=== PATIENT | female | born 1985 | race Two or more races ===

== ENCOUNTER → 2017-12-25 | Outpatient (CLI) | payer OTHER ==
[~2017-12-25] MED LIST: CERT400S IM; NAPR-856 PO
== END ==
LOC: CFH 07:34
PROVIDERS: ATTEND Surgery
DX: Z01.818 Encounter for other preprocedural examination (principal); E66.01 Morbid (severe) obesity due to excess calories
CPT/HCPCS: 74241

== ENCOUNTER → 2018-01-29 | Outpatient (CLI) | payer OTHER | END | disposition home or self-care (01) | LOC: CFH 07:01 | PROVIDERS: ATTEND Specialist | DX: D75.89 Other specified diseases of blood and blood-forming organs (principal); M05.79 Rheumatoid arthritis with rheumatoid factor of multiple sites without organ or systems involvement; M25.471 Effusion, right ankle ==

== ENCOUNTER 2018-03-21 13:28 | Emergency (ER) | payer OTHER ==
[~2018-03-21] VITALS: Ht 160 cm; Wt 82.0 kg
[2018-03-21] MEDS ORDERED: KETOROLAC 30 MG/1 ML ONE (14:28)
[2018-03-21] MEDS ORDERED: KETOROLAC 30 MG/1 ML IM ONE (14:30)
[2018-03-21 16:05] VITALS: BP 124/82
== END 2018-03-21 16:07 | disposition home or self-care (01) ==
LOC: ED 15:55
DX: M25.572 Pain in left ankle and joints of left foot (principal); M25.571 Pain in right ankle and joints of right foot; M06.9 Rheumatoid arthritis, unspecified
CPT/HCPCS: 73610; 96372; 99284; J1885

== ENCOUNTER → 2018-06-15 | Outpatient (CLI) | payer OTHER ==
[~2018-06-15] MED LIST changes: +TOFA11TA PO
== END | disposition home or self-care (01) ==
LOC: STAR 10:34
PROVIDERS: ATTEND Orthopaedic Surgery
DX: Z02.9 Encounter for administrative examinations, unspecified (principal)

== ENCOUNTER 2018-06-22 09:10 | Day surgery (SDC) | payer OTHER ==
[~2018-06-22] VITALS: Ht 160 cm; Wt 74.0 kg
[2018-06-22 09:27] VITALS: BP 116/82
[2018-06-22] MEDS ORDERED: LACTATED RINGERS 1,000 ML IV SCH (09:32)
[2018-06-22 09:42] LABS: HCG UR SG 1.024 (1.003-1.030)
[2018-06-22] MEDS ORDERED: MIDAZOLAM 1 MG/ML, 2ML ONE (10:09)
[2018-06-22] MEDS ORDERED: FENTANYL PF 250 MCG/5ML ONE (10:09)
[2018-06-22] MEDS ORDERED: BUPIVACAINE/PF 0.5% ONE (10:48)
[2018-06-22] MEDS ORDERED: LIDOCAINE/PF 1%, 30ML ONE (10:48)
[2018-06-22] MEDS ORDERED: MORPHINE SULFATE 4 MG/ML, 1ML IVPush PRN (11:00)
[2018-06-22] MEDS ORDERED: PROMETHAZINE 25 MG/ML, 1ML IM PRN ×2 (11:00)
[2018-06-22] MEDS ORDERED: OXYcodone 5 MG/5 ML ORAL.SOL UDC PO PRN (11:00)
[2018-06-22] MEDS ORDERED: LABETALOL 5MG/ML, 20ML IV PRN (11:00)
[2018-06-22] MEDS ORDERED: ACETAMINOPHEN 325 MG TABLET PO PRN (11:00)
[2018-06-22] MEDS ORDERED: HYDROmorphone 2 MG/ML, 1ML IVPush PRN (11:00)
[2018-06-22] MEDS ORDERED: MEPERIDINE/PF 25MG/0.5ML IVPush PRN (11:00)
[2018-06-22] MEDS ORDERED: PROMETHAZINE 12.5 MG SUPP PR PRN (11:00)
[2018-06-22] MEDS ORDERED: ONDANSETRON 2MG/ML, 2ML IV PRN (11:00)
[2018-06-22] MEDS ORDERED: FENTANYL PF 100 MCG/2ML IV PRN (11:00)
[2018-06-22] MEDS ORDERED: hydrALAzine 20 MG/ML, 1ML IV PRN (11:00)
[2018-06-22] MEDS ORDERED: ONDANSETRON ODT 8 MG PO PRN (11:00)
[2018-06-22] MEDS ORDERED: PROMETHAZINE 25 MG SUPP PR PRN (11:00)
[2018-06-22] MEDS ORDERED: HALOPERIDOL 5 MG/ML IV PRN (11:00)
[2018-06-22] MEDS ORDERED: PROMETHAZINE 25 MG/ML, 1ML IV PRN (11:00)
[2018-06-22] MEDS ORDERED: ONDANSETRON 2MG/ML, 2ML ONE (11:49)
[2018-06-22] MEDS ORDERED: CEFAZOLIN 1,000 MG ONE ×2 (11:49)
[2018-06-22] MEDS ORDERED: DEXAMETHASONE 4 MG/ML, 1ML ONE ×2 (11:49)
[2018-06-22] MEDS ORDERED: SODIUM CHLORIDE 0.9% PF 10ML ONE (11:49)
[2018-06-22] MEDS ORDERED: PROPOFOL 10 MG/ML, 20ML ONE (11:49)
[2018-06-22] MEDS ORDERED: ACETAMINOPHEN 650 MG/20.3 ML UDC ONE (12:43)
[2018-06-22] MEDS ORDERED: OXYcodone 5 MG/5 ML ORAL.SOL UDC ONE (12:44)
[2018-06-22] MEDS ORDERED: HYDROmorphone 2 MG/ML, 1ML ONE (14:03)
== END 2018-06-22 13:51 | disposition home or self-care (01) ==
LOC: OUT 09:10
PROVIDERS: ATTEND Orthopaedic Surgery
DX: M06.871 Other specified rheumatoid arthritis, right ankle and foot (principal); M65.871 Other synovitis and tenosynovitis, right ankle and foot; M21.6X1 Other acquired deformities of right foot
CPT/HCPCS: 27625; 29891; 29898; 81025; J0690; J1100; J2250; J2405; J2704; J3010; J7120; J3490

== ENCOUNTER 2019-07-23 12:36 | Outpatient (CLI) | payer OTHER ==
[2019-07-23] MEDS ORDERED: OMNIPAQUE 350 MG/ML, 100ML BOTTLE ONE (14:26)
== END 2019-07-23 23:59 | disposition home or self-care (01) ==
LOC: RAD 12:36
PROVIDERS: ATTEND Family Medicine
DX: R10.31 Right lower quadrant pain (principal)
CPT/HCPCS: 74177; Q9967

== ENCOUNTER → 2019-08-07 | Outpatient (CLI) | payer OTHER | END | disposition home or self-care (01) | LOC: CFH 07:43 | PROVIDERS: ATTEND Internal Medicine Cardiovascular Disease | DX: I34.0 Nonrheumatic mitral (valve) insufficiency (principal) | CPT/HCPCS: 93306 ==

== ENCOUNTER 2019-08-21 09:49 | Emergency (ER) | payer OTHER ==
[~2019-08-21] VITALS: Ht 160 cm; Wt 64.2 kg
--- NOTE | 2019-08-21 10:09 | NUR ---
PT A&OX4, RESP EVEN & UNLABORED, SPEECH CLEAR, + NAUSEA. C/O GREEN. DENIES ABD PAIN, VAG BLEED, UTI SX. REPORTS NAUSEA STARTED A COUPLE OF WEEKS AGO, VOMITING STARTED A COUPLE OF DAYS AGO, UNABLE TO KEEP ANYTHING DOWN TODAY. CONTACTED OB WHO ADVISED ED EVAL. LMP: 07/04/2019. AB0. SPOUSE IN ROOM. Addendum: 08/21/19 at 1025 by SHAWNA CORRECTION: AB1
[2019-08-21] MEDS ORDERED: PRENATAL VITAMIN (10:16)
--- NOTE | 2019-08-21 10:20 | NUR ---
PT AMBULATORY TO & FROM [facility] W/OUT INCIDENT, GAIT STEADY. VOIDED SPECIMEN PROVIDED.
--- NOTE | 2019-08-21 10:24 | NUR ---
DR SALTER BS FOR EXAM.
[2019-08-21] MEDS ORDERED: SODIUM CHLORIDE 0.9% 1,000ML IVBOLUS ONE (10:30)
[2019-08-21] MEDS ORDERED: SODIUM CHLORIDE FLUSH 10ML SYR IVF ONE (10:30)
[2019-08-21] MEDS ORDERED: ONDANSETRON 2MG/ML, 2ML IVPush ONE (10:30)
[2019-08-21 11:11] LABS: MICROSCOPIC NOT IND
[2019-08-21 11:22] LABS: CULTURE INDICATED? NO
[2019-08-21 11:28] LABS: BASOPHILS # (AUTO) 0.05 x10^3/uL (0-0.1); BASOPHILS % (AUTO) 1 % (0-1); EOSINOPHILS # (AUTO) 0.09 x10^3/uL (0-0.4); EOSINOPHILS % (AUTO) 2 % (1-7); LYMPHOCYTES # (AUTO) 1.88 x10^3/uL (1-3.4); LYMPHOCYTES % (AUTO) 34 % (22-44); MD NO; MEAN CORPUSCULAR HEMOGLOBIN 30.2 pg (27.0-34.8); MEAN CORPUSCULAR HGB CONC 33.7 g/dL (32.4-35.8); MEAN CORPUSCULAR VOLUME 89.6 fL (80-100); MEAN PLATELET VOLUME 8.1 fL (7.4-10.4); MONOCYTES # (AUTO) 0.42 x10^3/uL (0.2-0.8); MONOCYTES % (AUTO) 8 % (2-9); NEUTROPHILS # (AUTO) 3.15 x10^3/uL (1.8-6.8); NEUTROPHILS % (AUTO) 56 % (42-75); PLATELET COUNT 256 x10^3/uL (130-400); RED BLOOD COUNT 4.41 x10^6/uL (3.82-5.3); RED CELL DISTRIBUTION WIDTH 14.1 % (9.6-15.2)
[2019-08-21 11:43] LABS: ALBUMIN 3.6 g/dL (3.4-5.0); ANION GAP 8 mmol/L (5-15); CALCIUM 8.5 mg/dL (8.5-10.1); CHLORIDE 107 mmol/L (98-107); CREATININE 0.62 mg/dL (0.55-1.02)
--- NOTE | 2019-08-21 11:46 | NUR ---
PT REPORT TO MAHSA HIGUERA. PT CARE TRANSFERRED.
[2019-08-21 11:49] VITALS: BP 117/70
[2019-08-21] MEDS ORDERED: ONDANSETRON 2MG/ML, 2ML ONE (11:53)
--- NOTE | 2019-08-21 11:57 | NUR ---
PT MEDICATED PER MAR, IV BOLUS COMPLETED. AT BEDSIDE, VSS
== END 2019-08-21 12:58 | disposition home or self-care (01) ==
LOC: ED 11:12
DX: O21.0 Mild hyperemesis gravidarum (principal); Z3A.01 Less than 8 weeks gestation of pregnancy; Z90.49 Acquired absence of other specified parts of digestive tract
CPT/HCPCS: 36415; 80048; 81003; 82040; 85025; 96360; 99283; J2405; J7030

== ENCOUNTER → 2019-09-04 | Outpatient (CLI) | payer OTHER ==
[~2019-09-04] MED LIST changes: +PRENATAL VITAMIN
== END | disposition home or self-care (01) ==
LOC: RAD 08:53
PROVIDERS: ATTEND Orthopaedic Surgery
DX: M25.572 Pain in left ankle and joints of left foot (principal)

== ENCOUNTER 2020-01-03 13:57 | Observation (INO) | payer MEDICAID, OTHER ==
[~2020-01-03] VITALS: Ht 160 cm; Wt 72.7 kg
[2020-01-03 13:40] VITALS: BP 93/53
[2020-01-03 14:28] LABS: MICROSCOPIC INDICATED
[2020-01-03] MEDS ORDERED: ONDANSETRON 2MG/ML, 2ML IVPush ONE (15:30)
[2020-01-03] MEDS ORDERED: LACTATED RINGERS 1,000 ML IVBOLUS ONE (15:30)
[2020-01-03] MEDS ORDERED: LACTATED RINGERS 1,000 ML IV SCH (15:30)
[2020-01-03] MEDS ORDERED: ONDANSETRON 2MG/ML, 2ML ONE (15:31)
== END 2020-01-03 18:23 | disposition home or self-care (01) ==
LOC: LDOP 13:57 → LDIP 15:37
PROVIDERS: ADMIT Obstetrics & Gynecology; ATTEND Obstetrics & Gynecology
DX: O21.2 Late vomiting of pregnancy (principal); O99.89 Other specified diseases and conditions complicating pregnancy, childbirth and the puerperium; M06.9 Rheumatoid arthritis, unspecified; Z3A.26 26 weeks gestation of pregnancy
CPT/HCPCS: 59025; 81001; 96360; 96361; 96374; 99201; G0378; J2405; J7120; G0463

== ENCOUNTER → 2020-03-26 | Outpatient (CLI) | payer MEDICAID | END | disposition home or self-care (01) | LOC: STAR 12:03 | PROVIDERS: ATTEND Anesthesiology | DX: Z01.812 Encounter for preprocedural laboratory examination (principal); Z20.828 Contact with and (suspected) exposure to other viral communicable diseases | CPT/HCPCS: 36415; 87635 ==

== ENCOUNTER 2020-03-28 11:08 | Emergency (ER) | payer MEDICAID ==
[~2020-03-28] VITALS: Ht 160 cm; Wt 82.3 kg
--- NOTE | 2020-03-28 12:44 | NUR ---
Pt brougth back from triage with chief complaint of groin abbcess for about 4 days.
--- NOTE | 2020-03-28 13:25 | NUR ---
PT CAME BY POV. PT C/O GROIN PAIN FOR 4 DAYS WITH PALPABLE BUMP UNDER THE SKIN TO THE RIGHT OF HER LABIA. PT INITIALLY PRESENTED TO UC AND WAS DIRECTED TO THE ED. PT RATED PAIN 7/10.
[2020-03-28] MEDS ORDERED: HYDROmorphone 2 MG/ML, 1ML IM PRN (13:30)
[2020-03-28] MEDS ORDERED: HYDROmorphone 1 MG/ML, 1ML INJ ONE (13:44)
[2020-03-28] MEDS ORDERED: LIDOCAINE 2%, 20ML SQ ONE (14:00)
[2020-03-28] MEDS ORDERED: LIDOCAINE-MPF 1%, 5ML ONE (14:02)
[2020-03-28] MEDS ORDERED: LIDOCAINE-MPF 2% ,5ML ONE (14:08)
--- NOTE | 2020-03-28 14:22 | NUR ---
AFTER MEDICATED NOTED ON SEP, PROVIDER AT BEDSIDE PREPARING FOR I&D
[2020-03-28 14:50] VITALS: BP 122/74
== END 2020-03-28 15:00 | disposition home or self-care (01) ==
LOC: ED 12:19
DX: O99.713 Diseases of the skin and subcutaneous tissue complicating pregnancy, third trimester (principal); L02.214 Cutaneous abscess of groin; Z3A.38 38 weeks gestation of pregnancy; Z90.49 Acquired absence of other specified parts of digestive tract
CPT/HCPCS: 96372; 99283; J1170

== ENCOUNTER 2020-03-28 14:50 | Outpatient (CLI) | payer MEDICAID ==
[~2020-03-28] VITALS: Ht 160 cm; Wt 82.7 kg
== END 2020-03-28 17:25 | disposition home or self-care (01) ==
LOC: LDOP 14:50
PROVIDERS: ATTEND Obstetrics & Gynecology
DX: Z34.03 Encounter for supervision of normal first pregnancy, third trimester (principal); Z3A.38 38 weeks gestation of pregnancy
CPT/HCPCS: 59025; 76819

== ENCOUNTER 2020-03-31 07:18 | Inpatient (IN) | payer MEDICAID ==
[~2020-03-31] VITALS: Ht 160 cm; Wt 82.0 kg
[2020-03-31] MEDS ORDERED: OXYTOCIN 30U/ 0.9% NaCL 500ML 500 ML IV ONE (21:58)
[2020-03-31] MEDS ORDERED: OXYTOCIN 30U/ 0.9% NaCL 500ML 500 ML IV PRN (21:58)
[2020-03-31] MEDS ORDERED: MISOPROSTOL 25 MCG TABLET VG PRN (22:00)
[2020-03-31] MEDS ORDERED: TERBUTALINE 1 MG/ML, 1ML SQ PRN (22:00)
[2020-03-31] MEDS ORDERED: ONDANSETRON 2MG/ML, 2ML IVPush PRN (22:00)
[2020-03-31] MEDS ORDERED: SODIUM CITRATE/CITRIC ACID 30 ML UDC PO PRN (22:00)
[2020-03-31] MEDS ORDERED: FENTANYL PF 100 MCG/2ML IV PRN (22:00)
[2020-03-31] MEDS ORDERED: ALUMINUM/MAG/SIMETHICONE 30 ML UDC PO PRN (22:00)
[2020-03-31] MEDS ORDERED: METOCLOPRAMIDE 5 MG/ML, 2ML IVPush PRN (22:00)
[2020-03-31] MEDS ORDERED: FENTANYL PF 100 MCG/2ML IVPush PRN (22:00)
[2020-03-31] MEDS ORDERED: TERBUTALINE 1 MG/ML, 1ML IVPush PRN (22:00)
[2020-03-31] MEDS ORDERED: NEWBORN KIT ONE (22:05)
[2020-03-31] MEDS ORDERED: MISOPROSTOL 25 MCG TABLET ONE (22:05)
[2020-03-31] MEDS ORDERED: OXYTOCIN 30U/ 0.9% NaCL 500ML 500 ML ONE (22:05)
[2020-03-31] MEDS: LACTATED RINGERS 1,000 ML IV SCH (22:31)
[2020-03-31 22:44] LABS: BASOPHILS # (AUTO) 0.05 x10^3/uL (0-0.1); BASOPHILS % (AUTO) 1 % (0-1); EOSINOPHILS # (AUTO) 0.13 x10^3/uL (0-0.4); EOSINOPHILS % (AUTO) 2 % (1-7); LYMPHOCYTES # (AUTO) 1.91 x10^3/uL (1-3.4); LYMPHOCYTES % (AUTO) 29 % (22-44); MD NO; MEAN CORPUSCULAR HEMOGLOBIN 29.9 pg (27.0-34.8); MEAN CORPUSCULAR HGB CONC 33.2 g/dL (32.4-35.8); MEAN CORPUSCULAR VOLUME 90.1 fL (80-100); MEAN PLATELET VOLUME 9.4 fL (7.4-10.4); MONOCYTES # (AUTO) 0.41 x10^3/uL (0.2-0.8); MONOCYTES % (AUTO) 6 % (2-9); NEUTROPHILS % (AUTO) 62 % (42-75); PLATELET COUNT 208 x10^3/uL (130-400)
[2020-04-01] MEDS ORDERED: FENTANYL/BUPIV./NS/PF 250 ML EPIDCONT SCH (09:20)
[2020-04-01] MEDS ORDERED: NALOXONE 0.4 MG/ML, 1ML IVPush PRN (09:30)
[2020-04-01] MEDS ORDERED: DIPHENHYDRAMINE 50 MG/ML, 1ML IVPush PRN (09:30)
[2020-04-01] MEDS ORDERED: EPHEDRINE 50 MG/ML, 1ML IVPush PRN (09:30)
[2020-04-01] MEDS ORDERED: ONDANSETRON 2MG/ML, 2ML IVPush PRN (09:30)
[2020-04-01] MEDS ORDERED: LACTATED RINGERS 1,000 ML IVBOLUS PRN (09:30)
[2020-04-01] MEDS ORDERED: BUPIVACAINE 0.25% ONE (09:34)
[2020-04-01] MEDS ORDERED: FENTANYL/BUPIV./NS/PF 250 ML EPIDCONT ONE (09:34)
[2020-04-01] MEDS: LACTATED RINGERS 1,000 ML IV SCH ×2 (09:45→12:11)
[2020-04-01 10:33] LABS: ALANINE AMINOTRANSFERASE 52 U/L (12-78); ALBUMIN 2.6 g/dL (3.4-5.0); ANION GAP 7 mmol/L (5-15); CALCIUM 8.7 mg/dL (8.5-10.1); CHLORIDE 109 mmol/L (98-107); CREATININE 0.64 mg/dL (0.55-1.02)
[2020-04-01 10:35] LABS: MICROSCOPIC NOT IND
[2020-04-01 10:35] LABS: ALKALINE PHOSPHATASE 188 U/L (45-117); BILIRUBIN,TOTAL 0.2 mg/dL (0.2-1.0); TOTAL PROTEIN 6.6 g/dL (6.4-8.2)
[2020-04-01 10:47] LABS: CREATININE,URINE RANDOM 38.3 mg/dL
[2020-04-01] MEDS: D5%-LACTATED RINGERS 1,000 ML IV SCH ×2 (13:14→23:24)
[2020-04-01 19:15] VITALS: BP 135/77
[2020-04-01] MEDS ORDERED: ONDANSETRON 2MG/ML, 2ML ONE (20:07)
[2020-04-01] MEDS ORDERED: ACETAMINOPHEN 500 MG TABLET ONE (21:54)
[2020-04-01] MEDS ORDERED: GENTAMICIN PER PHARMACY MC PRN (22:00)
[2020-04-01] MEDS ORDERED: AMPICILLIN 2 GM in SODIUM CHLORIDE 0.9% 100 ML IV SCH (22:00)
[2020-04-01] MEDS ORDERED: ACETAMINOPHEN 500 MG TABLET PO ONE (22:00)
[2020-04-01] MEDS ORDERED: PHARMACOKINETIC MONITORING MC PRN (22:30)
[2020-04-01] MEDS ORDERED: GENTAMICIN 140 MG in SODIUM CHLORIDE 0.9% 50 ML IV ONE (23:00)
[2020-04-01] MEDS ORDERED: METOCLOPRAMIDE 5 MG/ML, 2ML ONE (23:45)
[2020-04-01] MEDS ORDERED: LIDOCAINE/MPF 2%-EPI 1:200K, 20 ML ONE (23:58)
[2020-04-02] MEDS ORDERED: morphine SULFATE/PF 1 MG/ML, 10ML ONE (00:21)
[2020-04-02] MEDS ORDERED: KETOROLAC 30 MG/1 ML ONE (00:22)
[2020-04-02] MEDS ORDERED: OXYTOCIN 10 UNITS/ML, 1ML ONE (00:22)
[2020-04-02] MEDS ORDERED: CEFAZOLIN 1,000 MG ONE (00:22)
[2020-04-02] MEDS ORDERED: ONDANSETRON 2MG/ML, 2ML ONE (00:22)
[2020-04-02] MEDS ORDERED: WATER-INJECTION,STERILE 10 ML IV ONE (00:22)
[2020-04-02] MEDS ORDERED: DEXAMETHASONE 4 MG/ML, 1ML ONE (00:22)
[2020-04-02] MEDS ORDERED: EPHEDRINE 50 MG/ML, 1ML ONE (01:21)
[2020-04-02] MEDS: LACTATED RINGERS 1,000 ML IV SCH ×8 (01:27→21:32)
[2020-04-02] MEDS: OXYTOCIN 30U/ 0.9% NaCL 500ML 500 ML IV SCH ×3 (01:32→21:32)
[2020-04-02 01:59] LABS: MEAN CORPUSCULAR HEMOGLOBIN 29.6 pg (27.0-34.8); MEAN CORPUSCULAR HGB CONC 32.4 g/dL (32.4-35.8); MEAN CORPUSCULAR VOLUME 91.3 fL (80-100); MEAN PLATELET VOLUME 9.3 fL (7.4-10.4); PLATELET COUNT 159 x10^3/uL (130-400); RED BLOOD COUNT 3.44 x10^6/uL (3.82-5.3); RED CELL DISTRIBUTION WIDTH 16.9 % (9.6-15.2)
[2020-04-02] MEDS ORDERED: MISOPROSTOL 200 MCG TABLET PR PRN (02:00)
[2020-04-02] MEDS: IBUPROFEN 600 MG TABLET PO SCH ×3 (02:00→18:00)
[2020-04-02] MEDS ORDERED: BISACODYL 10 MG SUPP PR PRN (02:00)
[2020-04-02] MEDS ORDERED: CALCIUM CARBONATE 500 MG TAB.CHEW PO PRN (02:00)
[2020-04-02] MEDS ORDERED: ONDANSETRON 2MG/ML, 2ML IV PRN (02:00)
[2020-04-02] MEDS ORDERED: ACETAMINOPHEN 325 MG TABLET PO SCH (02:00)
[2020-04-02] MEDS ORDERED: morphine SULFATE 10 MG/ML, 1ML IVPush PRN (02:00)
[2020-04-02] MEDS ORDERED: MORPHINE SULFATE 4 MG/ML, 1ML IVPush PRN ×2 (02:00→05:30)
[2020-04-02] MEDS ORDERED: CLINDAMYCIN PMX 900MG/50ML 50 ML ONE (02:15)
[2020-04-02] MEDS: CLINDAMYCIN PMX 900MG/50ML 50 ML IV SCH ×3 (02:23→18:06)
[2020-04-02 03:00] VITALS: BP 114/80
[2020-04-02 03:06] LABS: MD YES
[2020-04-02 03:09] LABS: BAND#(MANUAL) 2.32 x10^3/uL; BANDS%(MANUAL) 16 % (0-7); LYMPH#(MANUAL) 0.73 x10^3/uL (1-3.4); LYMPHS% (MANUAL) 5 % (22-44); MONOS#(MANUAL) 0.29 x10^3/uL (0.3-2.7); MONOS% (MANUAL) 2 % (2-9); SEG#(MANUAL) 11.17 x10^3/uL (1.8-6.8); SEGS% (MANUAL) 77 % (42-75)
[2020-04-02 03:10] LABS: <PLATELET ESTIMATE> ADEQUATE; <PLT MORPHOLOGY> NORMAL PLT MORPH; ANISOCYTOSIS 1+
[2020-04-02] MEDS: AMPICILLIN 2 GM in SODIUM CHLORIDE 0.9% 100 ML IV SCH ×3 (04:00→16:53)
[2020-04-02] MEDS ORDERED: OXYcodone/APAP 5/325MG TABLET ONE (05:04)
[2020-04-02] MEDS ORDERED: OXYcodone/APAP 5/325MG TABLET PO PRN (05:30)
[2020-04-02] MEDS ORDERED: NALOXONE 0.4 MG/ML, 1ML IVPush PRN (05:30)
[2020-04-02] MEDS ORDERED: DO NOT GIVE XX SCH (05:30)
[2020-04-02] MEDS ORDERED: DIPHENHYDRAMINE 50 MG/ML, 1ML IVPush PRN (05:30)
[2020-04-02] MEDS: KETOROLAC 30 MG/1 ML IV SCH ×3 (06:19→18:10)
[2020-04-02] MEDS ORDERED: BUPIVACAINE LIPOSOME/PF 10ML INFIL ONE (06:24)
[2020-04-02] MEDS: GENTAMICIN 120 MG in SODIUM CHLORIDE 0.9% 50 ML IV SCH ×2 (06:47→15:27)
[2020-04-02] MEDS ORDERED: GENTAMICIN 120 MG in SODIUM CHLORIDE 0.9% 50 ML IV SCH ×2 (07:00→23:00)
[2020-04-02 07:45] VITALS: BP 105/71
[2020-04-02] MEDS: DOCUSATE 100 MG CAPSULE PO PRN (07:52)
[2020-04-02] MEDS: PRENATAL VIT/IRON/FA 1 EACH TABLET PO SCH (07:52)
[2020-04-02] MEDS: SIMETHICONE 80 MG CHEW TAB PO PRN (07:52)
[2020-04-02 08:42] LABS: MEAN CORPUSCULAR HGB CONC 33.3 g/dL (32.4-35.8); MEAN CORPUSCULAR VOLUME 90.3 fL (80-100); PLATELET COUNT 162 x10^3/uL (130-400); RED BLOOD COUNT 3.29 x10^6/uL (3.82-5.3); RED CELL DISTRIBUTION WIDTH 16.2 % (9.6-15.2)
[2020-04-02 09:25] LABS: MD YES
[2020-04-02 09:28] LABS: <PLATELET ESTIMATE> ADEQUATE; <PLT MORPHOLOGY> NORMAL PLT MORPH; ANISOCYTOSIS 1+; BAND#(MANUAL) 4.64 x10^3/uL; BANDS%(MANUAL) 17 % (0-7); LYMPH#(MANUAL) 1.09 x10^3/uL (1-3.4); LYMPHS% (MANUAL) 4 % (22-44); SEG#(MANUAL) 21.57 x10^3/uL (1.8-6.8); SEGS% (MANUAL) 79 % (42-75)
[2020-04-02 12:00] VITALS: BP 106/70
[2020-04-02] MEDS: OXYcodone/APAP 5/325MG TABLET PO PRN ×3 (12:45→16:52)
[2020-04-02] MEDS: ACETAMINOPHEN 500 MG TABLET PO SCH ×2 (13:35→19:30)
[2020-04-02 16:00] VITALS: BP 107/70
[2020-04-02 20:00] VITALS: BP 114/76
[2020-04-02] MEDS ORDERED: AMPICILLIN 2 GM in SODIUM CHLORIDE 0.9% 100 ML IV SCH (22:00)
[2020-04-03] MEDS: KETOROLAC 30 MG/1 ML IV SCH (00:01)
[2020-04-03 00:19] VITALS: BP 108/74
[2020-04-03] MEDS: ACETAMINOPHEN 500 MG TABLET PO SCH ×4 (00:40→21:10)
[2020-04-03] MEDS ORDERED: CLINDAMYCIN PMX 900MG/50ML 50 ML IV SCH (01:31)
[2020-04-03] MEDS: LACTATED RINGERS 1,000 ML IV SCH ×6 (01:32→23:03)
[2020-04-03 04:10] VITALS: BP 112/76
[2020-04-03] MEDS: IBUPROFEN 600 MG TABLET PO SCH ×4 (05:59→21:00)
[2020-04-03] MEDS: OXYTOCIN 30U/ 0.9% NaCL 500ML 500 ML IV SCH ×2 (07:32→17:32)
[2020-04-03 07:35] VITALS: BP 95/65
[2020-04-03] MEDS: DOCUSATE 100 MG CAPSULE PO PRN ×2 (08:30→21:10)
[2020-04-03] MEDS: PRENATAL VIT/IRON/FA 1 EACH TABLET PO SCH (08:30)
[2020-04-03] MEDS: SIMETHICONE 80 MG CHEW TAB PO PRN (08:30)
[2020-04-03] MEDS: FERROUS SULFATE 325 MG TABLET PO SCH ×2 (09:10→16:52)
[2020-04-03 12:00] VITALS: BP 103/70
[2020-04-03] MEDS: OXYcodone IR 5MG TABLET PO PRN (13:12)
[2020-04-03 16:00] VITALS: BP 119/74
[2020-04-03 20:00] VITALS: BP 118/77
[2020-04-04 00:06] VITALS: BP 109/74
[2020-04-04] MEDS: LACTATED RINGERS 1,000 ML IV SCH ×5 (03:32→21:40)
[2020-04-04] MEDS: OXYTOCIN 30U/ 0.9% NaCL 500ML 500 ML IV SCH ×3 (03:32→23:23)
[2020-04-04] MEDS: IBUPROFEN 600 MG TABLET PO SCH ×4 (03:44→22:07)
[2020-04-04] MEDS: ACETAMINOPHEN 500 MG TABLET PO SCH ×4 (03:44→22:07)
[2020-04-04 03:51] VITALS: BP 104/76
[2020-04-04 06:50] VITALS: BP 111/75
[2020-04-04] MEDS: OXYcodone IR 5MG TABLET PO PRN ×4 (09:04→22:07)
[2020-04-04] MEDS: FERROUS SULFATE 325 MG TABLET PO SCH ×2 (09:04→16:04)
[2020-04-04] MEDS: PRENATAL VIT/IRON/FA 1 EACH TABLET PO SCH (09:04)
[2020-04-04] MEDS: DOCUSATE 100 MG CAPSULE PO PRN ×2 (09:04→22:07)
[2020-04-04 20:00] VITALS: BP 119/80
[2020-04-05] MEDS: LACTATED RINGERS 1,000 ML IV SCH (01:27)
[2020-04-05] MEDS: ACETAMINOPHEN 500 MG TABLET PO SCH ×2 (03:50→12:38)
[2020-04-05] MEDS: IBUPROFEN 600 MG TABLET PO SCH ×2 (03:50→10:00)
[2020-04-05 08:00] VITALS: BP 119/75
[2020-04-05] MEDS: FERROUS SULFATE 325 MG TABLET PO SCH ×2 (08:09→17:33)
[2020-04-05] MEDS: PRENATAL VIT/IRON/FA 1 EACH TABLET PO SCH (08:09)
[2020-04-05] MEDS: OXYcodone IR 5MG TABLET PO PRN ×3 (08:09→17:34)
[2020-04-05] MEDS: DOCUSATE 100 MG CAPSULE PO PRN (08:09)
[2020-04-05] MEDS ORDERED: OXYC-302 PO (10:14)
[2020-04-05] MEDS ORDERED: IBUP-1222 PO (10:15)
== END 2020-04-05 18:00 | disposition home or self-care (01) | DRG 786 ==
LOC: LDIP 21:11 → 2NW 04-02 03:21
PROVIDERS: ADMIT Obstetrics & Gynecology; ATTEND Obstetrics & Gynecology
PROC: 10D00Z1 Extraction of Products of Conception, Low, Open Approach (ICD-10-PCS; principal; 2020-04-02)
DX: O13.4 Gestational [pregnancy-induced] hypertension without significant proteinuria, complicating childbirth (principal); O41.1230 Chorioamnionitis, third trimester, not applicable or unspecified; D62 Acute posthemorrhagic anemia; O76 Abnormality in fetal heart rate and rhythm complicating labor and delivery; Z37.0 Single live birth; Z3A.39 39 weeks gestation of pregnancy; Z83.3 Family history of diabetes mellitus; Z90.49 Acquired absence of other specified parts of digestive tract; O69.81X0 Labor and delivery complicated by cord around neck, without compression, not applicable or unspecified; M79.7 Fibromyalgia; O36.5930 Maternal care for other known or suspected poor fetal growth, third trimester, not applicable or unspecified; M06.9 Rheumatoid arthritis, unspecified; O99.72 Diseases of the skin and subcutaneous tissue complicating childbirth; O99.844 Bariatric surgery status complicating childbirth; O90.81 Anemia of the puerperium
CPT/HCPCS: 36415; J7121; 80053; 81003; 82570; 83605; 83615; 84156; 84550; 85025; 86140; 86592; 86850; 86900; 87040; 88307; G0378; J0290; J0690; J1100; J1885; J2274; J2405; J1580; J2590; J2765; J7120

== ENCOUNTER 2020-04-21 21:07 | Emergency (ER) | payer MEDICAID ==
[~2020-04-21] VITALS: Ht 160 cm; Wt 75.0 kg
[~2020-04-21 21:07] MED LIST changes: +IBUP-1222 PO; +OXYC-302 PO
[2020-04-21] MEDS ORDERED: MORPHINE SULFATE 4 MG/ML, 1ML ONE ×2 (21:51→23:15)
[2020-04-21] MEDS ORDERED: ONDANSETRON 2MG/ML, 2ML ONE (21:51)
[2020-04-21] MEDS: MORPHINE SULFATE 4 MG/ML, 1ML IVPush PRN ×2 (21:54→23:19)
--- NOTE | 2020-04-21 21:59 | NUR ---
PT STATES SHE HAD A C SECTION DELIVERY ON THE 17. APPROX 30 MIN TO ARRIVAL TO ED PT STATES SHE STRATED BLEEDING "ABOUT A WATER BOTTLES WORTH" AND PT STATES SHE IS STILL BLEEDING. PIV PLACED AND PT ATTACHED TO ALL MONITORS. MEDICATED FOR PAIN PER EMAR.
[2020-04-21] MEDS ORDERED: ONDANSETRON 2MG/ML, 2ML IVPush ONE (22:00)
[2020-04-21 22:20] LABS: ALANINE AMINOTRANSFERASE 34 U/L (12-78); ANION GAP 7 mmol/L (5-15); CALCIUM 8.1 mg/dL (8.5-10.1); CHLORIDE 109 mmol/L (98-107); CREATININE 0.79 mg/dL (0.55-1.02)
[2020-04-21 22:22] LABS: ALKALINE PHOSPHATASE 148 U/L (45-117); BILIRUBIN,TOTAL 0.2 mg/dL (0.2-1.0); TOTAL PROTEIN 7.4 g/dL (6.4-8.2)
[2020-04-21 22:23] LABS: BASOPHILS % (AUTO) 1 % (0-1); EOSINOPHILS % (AUTO) 3 % (1-7); LYMPHOCYTES % (AUTO) 46 % (22-44); MEAN CORPUSCULAR HEMOGLOBIN 29.1 pg (27.0-34.8); MEAN CORPUSCULAR HGB CONC 32.6 g/dL (32.4-35.8); MEAN PLATELET VOLUME 6.7 fL (7.4-10.4); MONOCYTES % (AUTO) 10 % (2-9); NEUTROPHILS % (AUTO) 41 % (42-75); PLATELET COUNT 542 x10^3/uL (130-400); RED BLOOD COUNT 3.54 x10^6/uL (3.82-5.3); RED CELL DISTRIBUTION WIDTH 16.8 % (9.6-15.2)
--- NOTE | 2020-04-21 22:50 | NUR ---
PT IN ULTRASOUND
[2020-04-21 23:05] LABS: MD SCAN
--- NOTE | 2020-04-21 23:20 | NUR ---
PT REQUESTING MORE PAIN MEDS. MEDICATED FOR PAIN PER EMAR.
[2020-04-22 01:54] VITALS: BP 106/64
--- NOTE | 2020-04-22 01:54 | NUR ---
PATIENT UPDATED ON PLAN OF CARE. NO NOTED ACUTE DISTRESS. TOLERATING INTERVENTIONS WELL. PATIENT APPROVED TO HAVE WATER, WATER PROVIDED PER PATIENT REQUEST. CALL LIGHT WITHIN REACH, LIGHTS DIMMED, BED IN LOWEST LOCKED POSITION. BLANKETS GIVEN TO PATIENT TO IMPROVE PATIENT COMFORT.
[2020-04-22] MEDS ORDERED: METHYLERGONOVINE 0.2 MG/ML IM ONE (02:00)
== END 2020-04-22 04:32 | disposition home or self-care (01) ==
LOC: ED 21:24
DX: N92.0 Excessive and frequent menstruation with regular cycle (principal); Z90.49 Acquired absence of other specified parts of digestive tract
CPT/HCPCS: 36415; 76830; 80053; 85025; 86850; 86900; 96372; 96374; 96375; 99285; J2210; J2270; J2405; 96376

== ENCOUNTER 2020-04-27 15:20 | Emergency (ER) | payer MEDICAID ==
[~2020-04-27] VITALS: Ht 160 cm; Wt 74.0 kg
[2020-04-27 15:23] VITALS: BP 142/98
--- NOTE | 2020-04-27 16:08 | NUR ---
BREAK RN: THIS IS A 34 YEAR OLD FEMALE WHO DELIEVERED A BABY GIRL 4 WEEKS AGO AND C.O OF INCREASE VAGINAL BLEEDING, 4 PADS IN ONE HOUR. DISCUSSED PLAN OF CARE, AT BS. WARM BLANKET GIVEN. PT VEBALZIED NO ADDITIONAL NEEDS AT THIS TIME
--- NOTE | 2020-04-27 16:10 | NUR ---
BREAK RN: PT TO ULTRASOUND VIA NEMESIO
[2020-04-27 16:27] LABS: BASOPHILS % (AUTO) 1 % (0-1); EOSINOPHILS % (AUTO) 4 % (1-7); LYMPHOCYTES % (AUTO) 40 % (22-44); MEAN CORPUSCULAR HEMOGLOBIN 29.8 pg (27.0-34.8); MEAN CORPUSCULAR HGB CONC 33.1 g/dL (32.4-35.8); MEAN PLATELET VOLUME 6.8 fL (7.4-10.4); MONOCYTES % (AUTO) 6 % (2-9); NEUTROPHILS % (AUTO) 49 % (42-75); PLATELET COUNT 452 x10^3/uL (130-400); RED BLOOD COUNT 3.36 x10^6/uL (3.82-5.3); RED CELL DISTRIBUTION WIDTH 16.2 % (9.6-15.2)
[2020-04-27 16:52] LABS: MD NO
== END 2020-04-27 17:34 | disposition home or self-care (01) ==
LOC: ED 16:09
DX: N92.1 Excessive and frequent menstruation with irregular cycle (principal); M06.9 Rheumatoid arthritis, unspecified; Z90.49 Acquired absence of other specified parts of digestive tract
CPT/HCPCS: 36415; 76830; 85025; 99284